=== PATIENT | female | born 1970 | race Caucasian/White ===

== ENCOUNTER 2017-09-23 17:58 | Emergency (ER) | payer OTHER ==
[2017-09-23 18:06] VITALS: TEMP 98; BMI 31.1
--- NOTE | 2017-09-23 18:36 | PDOC ---
History of Present Illness - General Chief Complaint: Pain Stated Complaint: EDEMA Time Seen by Provider: 09/23/17 18:28 - History of Present Illness Initial Comments: Patient is a 47 year old female, with a no significant past medical hx , who presents to the emergency department complaining of one week of L anterior chest pain, L arm numbness and BL "leg heaviness". Pt endorses one week of persistent chest pain/tightness, which she described as a squeezing sensation, not worsened by exercise, with mild associated BL headache, no radiation. In addition, pt endorses accompanying intermittent chills, whole body cramps/ tingling, L arm numbness and sensation of BL LE heaviness. Pt also endorses occasional dyspnea on exertion and mild swelling in L leg. No hx of cardiac conditions, no AC. Pt denies ever having this pain before. The patient denies lightheadness, vision changes, dizziness, gait abnormalities. Denies fever, nausea, palpitations, cough, SOB, vomiting, diarrhea, back pain and constipation. Denies dysuria, frequency, urgency and hematuria. Allergies: NKDA Social History: No alcohol, tobacco, or drug use reported. Past Surgical History: PCP: Dr. Gary 09/23/17 18:33 Past History - Past Medical History Allergies/Adverse Reactions: Allergies Allergy/AdvReac Type Severity Reaction Status Date / Time No Known Allergies Allergy Unverified 09/23/17 18:02 Home Medications: Ambulatory Orders NK [No Known Home Medication] 06/11/14 COPD: No - Suicide/Smoking/Psychosocial Hx Smoking Status: No Smoking History: Never smoked Have you smoked in the past 12 months: No Number of Cigarettes Smoked Daily: 0 Information on smoking cessation initiated: No Hx Alcohol Use: No Drug/Substance Use Hx: No Substance Use Type: None Review of Systems - Review of Systems Comments:: GENERAL/CONSTITUTIONAL: No fever or chills. No weakness. HEAD, EYES, EARS, NOSE AND THROAT: No change in vision. No ear pain or discharge. No sore throat. CARDIOVASCULAR: Occasional PRUITT. Persistent CP/tightness for last week. occasional PRUITT. RESPIRATORY: No cough, wheezing, or hemoptysis. GASTROINTESTINAL: No nausea, vomiting, diarrhea or constipation. GENITOURINARY: No dysuria, frequency, or change in urination. MUSCULOSKELETAL: No joint or muscle swelling or pain. No neck or back pain. SKIN: No rash NEUROLOGIC: B/L cramping/tingling in all extremities. L arm numbness. No headache, vertigo, loss of consciousness, or change in strength/sensation. ENDOCRINE: No increased thirst. No abnormal weight change HEMATOLOGIC/LYMPHATIC: No anemia, easy bleeding, or history of blood clots. ALLERGIC/IMMUNOLOGIC: No hives or skin allergy. 09/23/17 18:33 09/23/17 19:08 *Physical Exam - Vital Signs Last Vital Signs Temp Pulse Resp BP Pulse Ox 98.0 F 78 18 117/77 100 09/23/17 18:04 09/23/17 18:04 09/23/17 18:04 09/23/17 18:04 09/23/17 18:04 - Physical Exam Comments: GENERAL: Middle-aged woman, awake, alert, and fully oriented, in no acute distress HEAD: No signs of trauma, normocephalic, atraumatic EYES: PERRLA, EOMI, sclera anicteric, conjunctiva clear ENT: Auricles normal inspection, hearing grossly normal, nares patent, oropharynx clear without exudates. Moist mucosa NECK: Normal ROM, supple, no lymphadenopathy, JVD, or masses LUNGS: No distress, speaks full sentences, clear to auscultation bilaterally HEART: RRR, normal S1 and S2, no murmurs, rubs or gallops, peripheral pulses normal and equal bilaterally. ABDOMEN: Soft, nontender, normoactive bowel sounds. No guarding, no rebound. No masses EXTREMITIES : Normal inspection, Normal range of motion, no edema. No clubbing or cyanosis. NEUROLOGICAL: Decreased sensation in L foot on plantar aspect. Cranial nerves II through XII grossly intact. Normal speech, normal gait, no focal sensorimotor deficits SKIN: Warm, Dry, normal turgor, no rashes or lesions noted 09/23/17 18:34 ED Treatment Course - LABORATORY CBC & Chemistry Diagram: 09/23/17 19:35 09/23/17 19:35 Medical Decision Making - Medical Decision Making 47 yo woman with no significant pmh who present with one week of intermittent chest pain/tightness, left arm numbness, diffuse paresthesias/cramping in extremities. EKG normal. Ordered for CMP, CBC, trops, lactate, CXR. Ddx includes costochondritis, ACS, MSK pain, GERD, pericarditis 09/23/17 19:[address] Wei. Will likely admit for observation on telemetry. *DC/Admit/Observation/Transfer Diagnosis at time of Disposition: Chest pain, Numbness and tingling, Generalized weakness, Restless leg syndrome - Discharge Dispostion Disposition: HOME Condition at time of disposition: Stable - Referrals Referrals: Kayden Gary MD [Primary Care Provider] - - Patient Instructions Printed Discharge Instructions: DI for Atypical Chest Pain, DI for Restless Legs Syndrome Additional Instructions: You were seen in the ER for chest pain. We did lab work on your blood and urine , an electrocardiogram, a head CT, and a chest x-ray, and we did not find any concerning abnormalities. Your symptoms improved with the medications we gave you in the ER. After our assessment, we do not believe you are having a medical emergency at this time, and we believe you are safe to go home. Take over the counter pain medications for your pain, as instructed on the medication label. Please follow up with your regular PCP doctor in 1-3 days. Call their clinic as soon as possible, tell them you were seen in the ER, and tell them you need an appointment. If you have any new or worsening symptoms, especially worsening chest pain, jaw pain, shoulder/arm pain, shortness of breath, sweats, nausea, loss of consciousness, palpitations, or other symptoms, please come back to the ER at any time (24 hours a day). If you are having severe or life threatening symptoms, or symptoms that make it unsafe to drive or have someone drive you, please call 911. Que fueron atendidos en la herman de urgencias por dolor torcico. Hicimos el trabajo de laboratorio en hester kaylee y orina, un electrocardiograma, jose TC de la elisabeth y jose radiografa de trax, y no encontramos ninguna sobre anomalas. Khushi sntomas mejoraron con los medicamentos que le dimos en la ER. Despus de nuestra evaluacin, no creemos que tiene jose urgencia mdica en hernan momento, y creemos que son seguras para ir a casa. Asumir los analgsicos de venta paulette para el dolor, roshan se indica en la etiqueta del medicamento. Por favor, mary un seguimiento con hester mdico PCP regulares en 1-3 garcia. Llame a hester clnica morrow pronto roshan sea posible, dgales que fueron vistos en el ER, y decirles que usted necesita jose geri. Si tiene alguna nueva o empeoramiento de los sntomas, especialmente el empeoramiento de dolor de pecho, dolor en la mandbula, el hombro o el brazo dolor, dificultad para respirar, sudoracin, nuseas, prdida de conciencia, palpitaciones u otros sntomas, por favor, regresa a la herman de urgencias en cualquier momento (24 horas al da). Si tiene sntomas graves o potencialmente mortales, o los sntomas que lo hacen inseguro para conducir o tener alguien que, por favor, llame al 911. Print Language: FRENCH - Post Discharge Activity
--- NOTE | 2017-09-23 19:28 | PDOC ---
Attending Attestation - Resident Resident Name: Terrance Hernandezua - ED Attending Attestation I have performed the following: I have examined & evaluated the patient, The case was reviewed & discussed with the resident, I agree w/resident's findings & plan, Exceptions are as noted - HPI HPI: Filter Assembler: [id number] 09/23/17 19:57 Ms Coreas is a 47 yo F with no significant past medical history She presents to the ER with a complaint of chest pain, left arm numbness and left leg numbness She specifically presented today because while she was driving today, both of her legs became weak No fevers or chills no direct chest wall trauma no recent travel No ill contacts Chest pain is described as squeezing, occurs every 15-20 minutes, no radiation, brief, lasting seconds followed by head pressure 09/23/17 20:11 09/23/17 20:38 - Physicial Exam PE: 09/23/17 20:14 On examination GENERAL: The patient is in no acute distress. EYES: PERRLA, EOMI, sclera anicteric, conjunctiva clear. ENT: Ears normal, nares patent, oropharynx clear without exudates. Moist mucous membranes. NECK: Normal range of motion, supple LUNGS: Breath sounds equal, clear to auscultation bilaterally. No wheezes, and no crackles. HEART:Regular rate and rhythm, normal S1 and S2 without murmur, rub or gallop. ABDOMEN: Soft, nontender, normoactive bowel sounds. No guarding, no rebound. No masses palpable. EXTREMITIES: Normal range of motion, no edema. NEUROLOGICAL: Cranial nerves II through XII grossly intact. Normal speech. No focal neurological deficits. MUSCULOSKELETAL: (+) mild left chest wall tenderness SKIN: Warm, Dry, normal turgor, no rashes or lesions noted. - Medical Decision Making 09/23/17 20:15 Patient has nonspecific symptoms. Unclear if her chest pain is due to ACS, versus costochondritis, versus musculoskeletal pain. Will do labs. Will do EKG Will re assess Anticipate observation 09/24/17 00:50 Laboratory Tests 09/23/17 09/23/17 09/23/17 19:35 19:35 23:52 WBC 7.1 Hgb 14.4 D Hct 41.4 Plt Count 158 D BUN 13 Creatinine 0.7 Creatine Kinase 125 Troponin I < 0.02 < 0.02 Troponin negative x 2 Pt HEART score is 2 (age and ? moderately suspicious) Symptoms are reproducible with palpation of her chest Pt has no exertional symptoms Chest pain has completely resolved CT head negative Pt has not elicitable sensory deficits and no motor deficits Will plan to discharge to home Pt to follow up with PMD within 1 week
[2017-09-23 19:44] LABS: BASO % 0.7 % (0-2.0); HEMATOCRIT 41.4 % (32.4-45.2); HEMOGLOBIN 14.4 GM/dL (10.7-15.3); LYMPH % 26.6 % (8-40); MCH 32.7 pg (25.7-33.7); MCHC 34.7 g/dl (32.0-36.0); MEAN CELL VOLUME 94.3 fl (80-96); MEAN PLT VOLUME 9.3 fl (7.5-11.1); MONO % 7.2 % (3.8-10.2); NEUT % 62.5 % (42.8-82.8); PLATELET COUNT 158 K/MM3 (134-434); RBC 4.39 M/mm3 (3.60-5.2); WHITE BLOOD COUNT 7.1 K/mm3 (4.0-10.0)
[2017-09-23] MEDS ORDERED: IBUPROFEN 600 MG TABLET (FP) PO ONE ×2 (19:56→20:12)
[2017-09-23 20:16] LABS: ALBUMIN 3.9 g/dl (3.4-5.0); ANION GAP 7 (8-16); BLOOD UREA NITROGEN 13 mg/dL (7-18); CALCIUM 8.8 mg/dL (8.5-10.1); CHLORIDE 107 mmol/L (98-107); CO2 27 mmol/L (21-32); CREATININE 0.7 mg/dL (0.55-1.02); GLUCOSE,RANDOM 100 mg/dL (74-106); POTASSIUM 3.8 mmol/L (3.5-5.1); SGOT/AST 40 U/L (15-37); SGPT/ALT 78 U/L (12-78); SODIUM 141 mmol/L (136-145); TOT PROT 7.6 g/dl (6.4-8.2)
[2017-09-23 20:22] LABS: ALK PHOS 119 U/L (45-117); BILIRUBIN,TOTAL 0.5 mg/dL (0.2-1.0)
[2017-09-23 20:34] LABS: PROTHROMBIN TIME (PATIENT) 11.3 SEC (9.7-13.0)
[2017-09-23 23:27] VITALS: BP 95/54; PULSE 65
--- NOTE | 2017-09-23 23:54 | PDOC ---
*Physical Exam - Vital Signs Last Vital Signs Temp Pulse Resp BP Pulse Ox 98.0 F 65 16 95/54 100 09/23/17 18:04 09/23/17 23:26 09/23/17 23:26 09/23/17 23:26 09/23/17 18:04 09/23/17 23:53 1 week of intermittend non-exertional chest pain, vague neurological symptoms ( cramping, numbness, and tingling in all four extremities). Trop is negative x1, Head CT is negative, now pending 2nd troponin. If negative and pain has resolved , she can likely go home. Heart Score/ECG Review - History History: Moderately suspicious - Electrocardiogram EKG: Normal - Age Age: 45-65 - Risk Factors Based on the list above the patient has:: No risk factors known - Troponin Troponin: </= normal limit - Score Heart Score - Total: 2 ED Treatment Course - LABORATORY CBC & Chemistry Diagram: 09/23/17 19:35 09/23/17 19:35 - ADDITIONAL ORDERS Additional order review: Laboratory Results 09/23/17 09/23/17 09/23/17 19:35 19:30 19:00 PT with INR 11.30 INR 1.00 Sodium 141 Potassium 3.8 Chloride 107 Carbon Dioxide 27 Anion Gap 7 L BUN 13 Creatinine 0.7 Creat Clearance w eGFR > 60 Random Glucose 100 Lactic Acid 0.8 Calcium 8.8 Total Bilirubin 0.5 D AST 40 H ALT 78 Alkaline Phosphatase 119 H Creatine Kinase 125 Troponin I < 0.02 Total Protein 7.6 Albumin 3.9 09/23/17 19:35 RBC 4.39 MCV 94.3 MCHC 34.7 RDW 13.0 D MPV 9.3 Neutrophils % 62.5 Lymphocytes % 26.6 Monocytes % 7.2 Eosinophils % 3.0 Basophils % 0.7 - Medications Given in the ED: ED Medications Discontinued Medications Generic Name Dose Route Start Last Admin Trade Name Freq PRN Reason Stop Dose Admin Ibuprofen 600 mg 09/23/17 19:56 09/23/17 20:14 Motrin - PO 09/23/17 19:57 600 mg ONCE ONE Administration Medical Decision Making - Medical Decision Making HEART score: 2 VS Reassessment: Repeat cardiac enzymes are negative. No new abnormal rhythms have been observed on the telemetry monitor. On last reassessment VS are stable, patients pain is resolved, and exam is benign. The patients HEART score indicates they are low risk and do not require admission currently. The patient is appropriate for discharge with close outpatient follow up. They are comfortable with this plan and will follow up with their PCP in 1-3 days. Return precautions are discussed and they will come back to the ER if necessary. *DC/Admit/Observation/Transfer Diagnosis at time of Disposition: Numbness and tingling, Generalized weakness, Restless leg syndrome Chest pain Qualifiers: Chest pain type: unspecified Qualified Code(s): R07.9 - Chest pain, unspecified - Discharge Dispostion Disposition: HOME Condition at time of disposition: Stable Decision to Admit order: No - Referrals Referrals: Kayden Gary MD [Primary Care Provider] - - Patient Instructions Printed Discharge Instructions: DI for Atypical Chest Pain, DI for Restless Legs Syndrome Additional Instructions: You were seen in the ER for chest pain. We did lab work on your blood and urine , an electrocardiogram, a head CT, and a chest x-ray, and we did not find any concerning abnormalities. Your symptoms improved with the medications we gave you in the ER. After our assessment, we do not believe you are having a medical emergency at this time, and we believe you are safe to go home. Take over the counter pain medications for your pain, as instructed on the medication label. Please follow up with your regular PCP doctor in 1-3 days. Call their clinic as soon as possible, tell them you were seen in the ER, and tell them you need an appointment. If you have any new or worsening symptoms, especially worsening chest pain, jaw pain, shoulder/arm pain, shortness of breath, sweats, nausea, loss of consciousness, palpitations, or other symptoms, please come back to the ER at any time (24 hours a day). If you are having severe or life threatening symptoms, or symptoms that make it unsafe to drive or have someone drive you, please call 911. Que fueron atendidos en la herman de urgencias por dolor torcico. Hicimos el trabajo de laboratorio en hester kaylee y orina, un electrocardiograma, jose TC de la elisabeth y jose radiografa de trax, y no encontramos ninguna sobre anomalas. Khushi sntomas mejoraron con los medicamentos que le dimos en la ER. Despus de nuestra evaluacin, no creemos que tiene jose urgencia mdica en hernna momento, y creemos que son seguras para ir a casa. Asumir los analgsicos de venta paulette para el dolor, roshan se indica en la etiqueta del medicamento. Por favor, mary un seguimiento con hester mdico PCP regulares en 1-3 garcia. Llame a hester clnica morrow pronto roshan sea posible, dgales que fueron vistos en el ER, y decirles que usted necesita jose geri. Si tiene alguna nueva o empeoramiento de los sntomas, especialmente el empeoramiento de dolor de pecho, dolor en la mandbula, el hombro o el brazo dolor, dificultad para respirar, sudoracin, nuseas, prdida de conciencia, palpitaciones u otros sntomas, por favor, regresa a la herman de urgencias en cualquier momento (24 horas al da). Si tiene sntomas graves o potencialmente mortales, o los sntomas que lo hacen inseguro para conducir o tener alguien que, por favor, llame al 911. Print Language: LATVIAN - Post Discharge Activity
--- NOTE | 2017-09-24 13:26 | EKG ---
Test Reason : Blood Pressure : / mmHG Vent. Rate : 076 BPM Atrial Rate : 076 BPM P-R Int : 124 ms QRS Dur : 072 ms QT Int : 386 ms P-R-T Axes : 031 014 020 degrees QTc Int : 434 ms NORMAL SINUS RHYTHM NORMAL ECG WHEN COMPARED WITH ECG OF 26-APR-2016 19:43, NO SIGNIFICANT CHANGE WAS FOUND Confirmed by ANU JIN MD ([id number]) on 09/24/2017 1:26:05 PM Referred By: Confirmed By:ANU JIN MD
== END 2017-09-24 00:58 | disposition home or self-care (01) ==
LOC: JER 17:58
DX: R07.89 Other chest pain (principal); G25.81 Restless legs syndrome; R20.2 Paresthesia of skin
CPT/HCPCS: 36415; 70450-TC; 71045-TC-FY; 80053; 82550; 83605; 84484; 85025; 85610; 93005; 93010; 99283-25